=== PATIENT | female | born 1965 | race Caucasian/White ===

== ENCOUNTER → 2016-07-10 | Outpatient (CLI) | payer OTHER ==
--- NOTE | 2016-07-11 11:19 | RAD ---
DATE: July 10, 2016 EXAM: DIGITAL SCREEN BILAT W/CAD HISTORY: Screening study. COMPARISON: 2008 and 2010 This study was interpreted with the benefit of Computerized Aided Detection (CAD ). FINDINGS: The breast parenchyma is heterogeneously dense. There is a new dense nodule within the lateral aspect of the left breast in the CC projection. Recommend focal compression view and rolled CC views and 90 degree mediolateral view of the left breast for further evaluation. If this finding persists, sonography is recommended as well. The right breast is stable. IMPRESSION: New nodule of the left breast. Additional imaging is needed. BI-RADS CATEGORY: 0A INCOMPLETE: NEEDS ADDITIONAL IMAGING EVALUATION AND/OR PRIOR MAMMOGRAMS FOR COMPARISON. RECOMMENDED FOLLOW-UP: Now PQRS compliance statement: Patient information was entered into a reminder system with a target due date now for the next mammogram. Mammography is a sensitive method for finding small breast cancers, but it does not detect them all and is not a substitute for careful clinical examination. A negative mammogram does not negate a clinically suspicious finding and should not result in delay in biopsying a clinically suspicious abnormality. "Our facility is accredited by the [employer] Mammography [employer]." The patient's breast density may affect the ability of mammography to detect breast cancer. There are 4 categories of breast density, A, B, C and D. Breast density A means that most of the breast tissue is replaced with adipose tissue and therefore is not dense. Breast density B means that the breast tissue is mildly dense and scattered. Breast density C means that the breast tissue is heterogeneously dense. Breast density D means that the breast tissue is very dense. Breast densities especially C and D may decrease the sensitivity of mammography to detect breast cancer. Therefore, the patient may benefit from 3- D breast mammography (3D breast tomography) as a part of their screening mammogram. Insurance may or may not pay for this additional imaging. The patient 's breast density based on today's mammogram is category C.. MTDD
== END | disposition home or self-care (01) ==
LOC: MAMMO 08:30
PROVIDERS: ATTEND Nurse Practitioner Women's Health
DX: Z12.31 Encounter for screening mammogram for malignant neoplasm of breast (principal)
CPT/HCPCS: G0202; 77067

== ENCOUNTER → 2017-03-30 | Outpatient (CLI) | payer OTHER ==
--- NOTE | 2017-03-30 11:07 | RAD ---
DATE: 03/30/2017 EXAM: DIGITAL DIAGNOSTIC LT HISTORY: 6 month follow-up COMPARISON: July 10, 2016 note is made of the diagnostic examination 07/23/2016 This study was interpreted with the benefit of Computerized Aided Detection (CAD). FINDINGS: Breast Density: HETERO The breast parenchyma Is heterogeneiously dense, which could reduce sensitivity of mammography. Breast parenchyma level C. Area of slightly increased density laterally in the left breast on the cc view is less conspicuous than previously. It likely reflects summation artifact a definite abnormality is not seen in the left breast. Follow-up bilateral mammography is suggested in June, IMPRESSION: Benign findings left breast. Follow-up screening mammography in June, advised BI-RADS CATEGORY: 2 BENIGN FINDING(S) RECOMMENDED FOLLOW-UP: 3M 3 MONTH FOLLOW-UP PQRS compliance statement: Patient information was entered into a reminder system with a target due date July 10, 2017 for the next mammogram. Mammography is a sensitive method for finding small breast cancers, but it does not detect them all and is not a substitute for careful clinical examination. A negative mammogram does not negate a clinically suspicious finding and should not result in delay in biopsying a clinically suspicious abnormality. "Our facility is accredited by the [employer]amm[employer]."
== END | disposition home or self-care (01) ==
LOC: MAMMO 10:20
PROVIDERS: ATTEND Family Medicine
DX: R92.8 Other abnormal and inconclusive findings on diagnostic imaging of breast (principal)
CPT/HCPCS: G0206; 77065

== ENCOUNTER → 2017-05-13 | Day surgery (SDC) | payer OTHER ==
[~2017-05-13] MED LIST: GLYCOPYRROLATE 1 MG/5 ML VIAL.; LIDOCAINE 2% PF Vial for OR 5 ML VIAL.; PROPOFOL 40 ML IV
[2017-05-13] MEDS: IV RINGERS,LACTATED 1000ML 1,000 ML IV (06:37)
== END | disposition home or self-care (01) ==
LOC: ENDOS 06:00
DX: Z12.11 Encounter for screening for malignant neoplasm of colon (principal); K64.0 First degree hemorrhoids; Z90.49 Acquired absence of other specified parts of digestive tract; Z98.890 Other specified postprocedural states
CPT/HCPCS: 45378; J2704; J3490

== ENCOUNTER → 2018-04-09 | Outpatient (CLI) | payer OTHER ==
[2017-05-13 07:57] VITALS: BP 117/67
[~2018-04-09] MED LIST changes: +CHOL500016 PO; -GLYCOPYRROLATE 1 MG/5 ML VIAL.; +HYDR10FO3 RC; -LIDOCAINE 2% PF Vial for OR 5 ML VIAL.; +OMEG1CAP6 PO; +PROG200C15 PO; -PROPOFOL 40 ML IV
--- NOTE | 2018-04-09 12:37 | RAD ---
DATE: 04/09/2018 EXAM: MAMMO ANDREW SCREENING BILATERAL HISTORY: Routine screening COMPARISON: 07/10/2016 This study was interpreted with the benefit of Computerized Aided Detection (CAD). Breast Density: HETERO The breast parenchyma is heterogenously dense, which could reduce sensitivity of mammography. Breast parenchyma level C. FINDINGS: 2-D and 3-D tomosynthesis imaging was performed in CC and MLO projections. No new or enlarging breast densities are seen. No suspicious microcalcifications are evident. IMPRESSION: Stable mammograms without evidence of malignancy. BI-RADS CATEGORY: 2 BENIGN FINDING(S) RECOMMENDED FOLLOW-UP: 12M 12 MONTH FOLLOW-UP PQRS compliance statement: Patient information was entered into a reminder system with a target due date for the next mammogram. Mammography is a sensitive method for finding small breast cancers, but it does not detect them all and is not a substitute for careful clinical examination. A negative mammogram does not negate a clinically suspicious finding and should not result in delay in biopsying a clinically suspicious abnormality. "Our facility is accredited by the [employer] Mammography Program."
== END | disposition home or self-care (01) ==
LOC: MAMMO 09:59
PROVIDERS: ATTEND Family Medicine
DX: Z12.31 Encounter for screening mammogram for malignant neoplasm of breast (principal)
CPT/HCPCS: 77063; 77067

== ENCOUNTER → 2019-08-15 | Outpatient (CLI) | payer OTHER ==
[2017-05-13 07:57] VITALS: BP 117/67
--- NOTE | 2019-08-15 11:40 | KCIC ---
MRI Cervical Spine Without Contrast History: Neck pain, bilateral elbow pain for 2 years Technique: Multiplanar, multi sequential noncontrast MR imaging was performed of the cervical spine. Comparison: None Findings: There is some motion. Cervical cord caliber is within normal limits without defined or expansile signal abnormality. Cervical vertebral body stature is overall maintained. There is mild reversal of the lordotic curvature centered near C5-6. There is moderate degenerative disc disease at C5-6. There are posterior annular tears C5-6 and C6-7. There is very minimal posterior subluxation of C5 relative to C6. C2-C3: Neural foramina and spinal canal are adequate. C3-C4: Neural foramina and spinal canal are adequate. There is mild facet hypertrophic change greater on the right. C4-C5: Neural foramina and spinal canal are adequate. C5-C6: There is disc osteophyte complex, superimposed shallow protrusion eccentric to the left paracentral region. There is indentation upon the ventral thecal sac in the left paracentral region with mild left lateral recess stenosis, central canal adequate about 11-12 mm. Neural foramina are adequate. C6-C7: There is minimal bulge about 2 mm AP, central canal adequate about 12 mm. Neural foramina are adequate. There is facet degenerative change. C7-T1: Neural foramina and spinal canal are adequate. Impression: 1. There is no significant cervical spinal stenosis, mild left lateral recess stenosis by disc osteophyte complex and shallow protrusion at C5-6. There is moderate C5-C6 degenerative disc disease. There is mild spondylosis. There is mild reversal of the lordotic curvature, also very minimal posterior subluxation C5 relative to C6. Electronically signed by: Luis Salazar MD (08/15/2019 11:37 AM) [id number]
== END | disposition home or self-care (01) ==
LOC: KCIC MRI 10:41
PROVIDERS: ATTEND Nurse Practitioner Gerontology
DX: M47.812 Spondylosis without myelopathy or radiculopathy, cervical region (principal); M50.322 Other cervical disc degeneration at C5-C6 level; M99.11 Subluxation complex (vertebral) of cervical region; M50.822 Other cervical disc disorders at C5-C6 level
CPT/HCPCS: 72141

== ENCOUNTER → 2020-01-27 | Outpatient (CLI) | payer OTHER ==
[2017-05-13 07:57] VITALS: BP 117/67
== END | disposition home or self-care (01) ==
LOC: LAB 10:28
PROVIDERS: ATTEND Internal Medicine Pulmonary Disease
DX: R09.81 Nasal congestion (principal); R51 Headache; Z20.828 Contact with and (suspected) exposure to other viral communicable diseases
CPT/HCPCS: U0003-CS